=== PATIENT | male | born 1955 | race Caucasian/White ===

== ENCOUNTER 2019-03-26 11:32 | Inpatient (IN) | payer BC, OTHER ==
[~2019-03-26] VITALS: Ht 188 cm; Wt 141.1 kg
[2019-03-26] MEDS ORDERED: CLINDAMYCIN 900MG IV 50 ML IV ONE (13:30)
[2019-03-26] MEDS ORDERED: cefTRIAXone 1GM/50ML D5W 50 ML IV ONE (13:30)
[2019-03-26 13:59] LABS: Basophils # (auto) 0.1 uL; Basophils % (auto) 0.8 % (0.0-2.0); Eosinophils # (auto) 0.1 uL; Eosinophils % (auto) 0.7 % (0.0-7.0); Hematocrit 43.8 % (41.0-53.0); Lymphocytes # (auto) 0.9 uL; Mean Corpuscular Hemoglobin 33.2 pg (28.0-32.0); Mean Corpuscular Hgb Conc. 34.2 g/dL (32.0-36.0); Monocytes % (auto) 9.5 % (0.0-12.0); Neutrophils # (auto) 8.1 uL; Platelet Count (auto) 298 10^3/uL (140-450); Red Blood Cells 4.52 10^6/uL (4.5-5.90); Red Cell Distribution Width 14.4 % (11.8-14.3); White Blood Cell 10.1 10^3/uL (4.4-10.8)
[2019-03-26 14:06] LABS: INR 1.08 (0.9-1.15); Partial Thromboplastin Time 29.9 sec (23.64-32.05)
[2019-03-26 14:12] LABS: Albumin 2.2 g/dL (3.4-5.0); Anion Gap 11 (5-15); BUN/Creatinine Ratio 19.3; Blood Urea Nitrogen 23 mg/dL (7-18); Calcium 8.7 mg/dL (8.5-10.1); Carbon Dioxide 23 mmol/L (21-32); Chloride 105 mmol/L (98-107); GFR African American 79 mL/min; GFR Non-African American 65 mL/min; Glucose 95 mg/dL (74-106); Potassium 3.8 mmol/L (3.5-5.1); Sodium 139 mmol/L (136-145)
[2019-03-26 14:17] LABS: Alanine Aminotransferase 12 U/L (16-61); Alkaline Phosphatase 75 U/L (45-117); Aspartate Aminotransferase 12 U/L (15-37); Bilirubin, Total 0.6 mg/dL (0.2-1.0); Total Protein 7.5 g/dL (6.4-8.2)
[2019-03-26] MEDS ORDERED: ENOXAPARIN SOD 40 MG/0.4 ML SYRINGE SC ONE (15:30)
[2019-03-26] MEDS ORDERED: NITROGLYCERIN 0.4 MG SL TAB SL PRN (15:30)
[2019-03-26] MEDS ORDERED: ACETAMINOPHEN 500 MG TAB PO PRN (15:30)
[2019-03-26] MEDS ORDERED: MORPHINE SULF INJ 2 MG/ML SYRINGE 1ML IV PRN ×2 (15:30)
[2019-03-26 16:45] VITALS: BP 163/67
--- NOTE | 2019-03-26 16:45 | NUR ---
MS admit from ER [facility] admitted to tele/MS after SBAR received. Patient oriented to Na Sam, primary RN, unit, room, bed, and unit policies regarding patient care and visiting hours. Patient weighed by bedscale and encouraged to call if they need something. All questions and concerns addressed, patient verbalized understanding. Wound care at bed side, skin assessment done with wound care nurse lateral wound and lt lateral wound x 2 cleaned with normal saline, applied therahoney gauze, covered with the unna boot, kerlix, and ira wrap, call light with in reach, pt educated to call for assistance.
--- NOTE | 2019-03-26 17:14 | NUR ---
WOUND CARE NOTE: Wound care in to see patient per wound care request regarding multiple skin integrity issue that are noted present on admission. Patient is 63 years old male with admitting diagnosis of Cellulitis RLE. He has history of Htn and cellulitis to bilateral leg. Patient have just arrived to room 276B from [facility]. He's awake,alert and fully oriented. He's in no stated pain at this time. He's able to turn and reposition self. His current Rao score is 20. Skin assessment done with the assistance of patient's nurse, BRITTANI Monzon. Patient's bilateral lower leg are red, edematous with dry hyperkeratotic skin. Multi ulceration noted to his Lt lateral leg measuring 3x2.5cm, 1x0.5cm and 2x1.5cm. Wounds are red, full thickness with no measurable depth. Scant bleeding noted, no odor noted. His Rt lateral lower leg also has ulceration measuring 5x1.5x0.3cm. Wound is red with yellow slough, asuncion wound is bright red, scant serous drainage noted, no odor noted. Patient reported that he's been battling with this leg problem many years ago, will get better and will swell and reopen again. He added that he was being seen at [facility] years ago and the last time he's there was five years ago. He continued further that his legs get better and instructed to apply Unna boots which he does at home and change every week. Bedside nurse sent wound culture specimen of patient's BLE wound to lab for processing. Cleansed patient's BLE with wound cleanser, patted dry with gauze, applied Thera honey gauze to open wounds, applied Unna boots, covered with Kerlix and further secured with SHERRIE wrap per MD order. Patient also noted with moist redness under L breast, L abdominal fold and bilateral groin consistent with intertrigo. Patient is obese and has deep skin fold. No pressure injury noted. Photograph of mentioned multiple skin issue are taken for reference. Patient tolerated well. BRITTANI Monzon at bedside. RECOMMENDATION: BID/PRN cleaning and application of Antifungal clear ointment to intertrigo, Q3Days/PRN dressing change to BLE wounds per MD order, Dietary consult, elevate affected extremity on pillows, continue monitoring by wound care while patient is hospitalized. Addendum: 03/26/19 at 1858 by Becky Peter RN Amended: Daksha added.
[2019-03-26 17:56] VITALS: BP 163/67
[2019-03-26] MEDS ORDERED: IBUP200C95 PO (18:30)
[2019-03-26] MEDS ORDERED: TRIATAB3 PO (18:30)
[2019-03-26] MEDS ORDERED: ATEN50TA PO (18:30)
--- NOTE | 2019-03-26 19:45 | NUR ---
Opening Shift Note Assumed care of patient, awake and alert oriented x4. No S/S of distress/SOB noted. Bed is in lowest locked position with bed rails up x2 and call light is within reach of the patient. Instructed on POC and to call for assist PRN.
[2019-03-26] MEDS: FAMOTIDINE 20 MG TAB PO SCH (21:46)
[2019-03-26] MEDS: ATENOLOL 25 MG TAB PO SCH (21:47)
[2019-03-26] MEDS: CLINDAMYCIN 300MG IV 50 ML IV SCH (21:48)
[2019-03-26 21:52] VITALS: BP 162/77
[2019-03-27 05:01] VITALS: BP 132/49
[2019-03-27] MEDS: HYDROcodone-ACET 5/325MG TAB PO PRN ×3 (05:35→22:12)
[2019-03-27] MEDS: CLINDAMYCIN 300MG IV 50 ML IV SCH ×3 (05:36→22:10)
[2019-03-27 06:19] LABS: Basophils # (auto) 0 uL; Basophils % (auto) 0.5 % (0.0-2.0); Eosinophils # (auto) 0.1 uL; Hematocrit 41.9 % (41.0-53.0); Hemoglobin 14.1 g/dL (13.5-17.5); Lymphocytes # (auto) 0.9 uL; Lymphocytes % (auto) 10.5 % (10.0-50.0); Mean Corpuscular Hemoglobin 32.9 pg (28.0-32.0); Mean Corpuscular Hgb Conc. 33.7 g/dL (32.0-36.0); Mean Corpuscular Volume 97.6 fL (80.0-100.0); Monocytes # (auto) 0.9 uL; Monocytes % (auto) 11.1 % (0.0-12.0); Neutrophils # (auto) 6.3 uL; Neutrophils % (auto) 76.9 % (37.0-80.0); Platelet Count (auto) 280 10^3/uL (140-450); Red Blood Cells 4.29 10^6/uL (4.5-5.90); Red Cell Distribution Width 13.9 % (11.8-14.3); White Blood Cell 8.2 10^3/uL (4.4-10.8)
[2019-03-27 06:41] LABS: INR 1.11 (0.9-1.15); Partial Thromboplastin Time 31.8 sec (23.64-32.05)
[2019-03-27 06:47] LABS: BUN/Creatinine Ratio 21.1; Calcium 8.8 mg/dL (8.5-10.1); Potassium 3.9 mmol/L (3.5-5.1)
[2019-03-27 09:00] VITALS: BP 143/63
[2019-03-27] MEDS: ATENOLOL 25 MG TAB PO SCH (10:00)
[2019-03-27] MEDS: cefTRIAXone 1GM/50ML D5W 50 ML IV SCH (10:24)
[2019-03-27] MEDS: TRIAMTERENE/HCTZ 37.5/25 MG CAP/TAB PO SCH (10:27)
[2019-03-27] MEDS: FAMOTIDINE 20 MG TAB PO SCH ×2 (10:27→22:10)
[2019-03-27] MEDS ORDERED: OPTISON 3ml Vial for INJ IV ONE (12:03)
[2019-03-27 13:00] VITALS: BP 147/74
[2019-03-27] MEDS ORDERED: NIFEdipine ER 30 MG TAB PO ONE (15:00)
[2019-03-27] MEDS ORDERED: ASPirin-EC 81 mg tab PO ONE (15:00)
[2019-03-27] MEDS ORDERED: ENOXAPARIN SOD 40 MG/0.4 ML SYRINGE SC ONE (16:30)
[2019-03-27 16:51] VITALS: BP 158/62
--- NOTE | 2019-03-27 18:07 | NUR ---
Patient given the second specimen container for urine collection as the other one spilled over per patient.
[2019-03-27 22:00] VITALS: BP 132/68
[2019-03-27 22:50] LABS: Urine Bacteria FEW /hpf (None Seen); Urine Blood 2+ /uL (Negative); Urine Specific Gravity 1.011 (1.001-1.035); Urine WBC 2 /hpf (0 - 3)
[2019-03-27 23:00] LABS: Alcohol, Urine < 3.0 mg/dL (0-5); Amphetamine Screen, Urine NEGATIVE (NEGATIVE); Barbiturate Scree,Urine NEGATIVE (NEGATIVE); Benzodiazephine Screen, Urine NEGATIVE (NEGATIVE); Cannabinoid Screen, Urine NEGATIVE (NEGATIVE); Cocaine Screen, Urine NEGATIVE (NEGATIVE); Opiate Scree,Urine NEGATIVE (NEGATIVE); Phencyclidine Screen, Urine NEGATIVE (NEGATIVE)
[2019-03-28] MEDS: CLINDAMYCIN 300MG IV 50 ML IV SCH ×3 (05:37→22:31)
[2019-03-28] MEDS: HYDROcodone-ACET 5/325MG TAB PO PRN ×2 (05:42→19:58)
[2019-03-28 06:00] VITALS: BP 125/52
[2019-03-28 07:03] LABS: Cholesterol 136 mg/dL (< 200); HDL Cholesterol 22 mg/dL (40-59); LDL Cholesterol 100 mg/dL (< 100); Triglycerides 150 mg/dL (< 150)
[2019-03-28 08:50] VITALS: BP 125/59
[2019-03-28] MEDS: FAMOTIDINE 20 MG TAB PO SCH ×2 (11:21→22:31)
[2019-03-28] MEDS: TRIAMTERENE/HCTZ 37.5/25 MG CAP/TAB PO SCH (11:21)
[2019-03-28] MEDS: cefTRIAXone 1GM/50ML D5W 50 ML IV SCH (11:21)
[2019-03-28] MEDS: ASPirin-EC 81 mg tab PO SCH (11:21)
[2019-03-28] MEDS: ENOXAPARIN SOD 40 MG/0.4 ML SYRINGE SC SCH (11:22)
[2019-03-28] MEDS: NIFEdipine ER 30 MG TAB PO SCH (11:22)
--- NOTE | 2019-03-28 12:26 | NUR ---
Nutrition consult/assessment Notes please see attached link for complete assessment Est. Needs ABW [id number] kcal (20-23kcal/kgBW), 112-123 gms pro (1.0-1.1 gms/kgBW r/t wounds). Will continue to monitor pertinent labs and reassess nutrient need prn Addendum: 03/28/19 at [address] Amended: Links added.
[2019-03-28 12:51] VITALS: BP 129/62
[2019-03-28 16:51] VITALS: BP 151/71
--- NOTE | 2019-03-28 19:30 | NUR ---
Opening Shift Note Assumed care of patient, awake and alert. Patient verbalizes pain localizes to right and left lower legs, rating pain as 7/10. Will medicate and reassess as per ordered. Instructed on POC and to call for assist PRN, will continue to monitor for changes Q1hr and PRN.
[2019-03-28 22:00] VITALS: BP 124/56
--- NOTE | 2019-03-28 22:00 | NUR ---
IV insertion IV access obtained, via clean sterile technique by inserting 22 gauge catheter at right hand after 1 attempt. IV secured properly. No trauma to site. Patient tolerated well.
--- NOTE | 2019-03-28 22:05 | NUR ---
IV removal d/t leaking IV DC'd with clean sterile technique, catheter fully intact. Pressure dressing applied to site. Patient tolerated well.
[2019-03-29 05:00] VITALS: BP 119/57
[2019-03-29] MEDS: CLINDAMYCIN 300MG IV 50 ML IV SCH ×2 (05:55→14:00)
--- NOTE | 2019-03-29 06:26 | NUR ---
ROUNDS PATIENT AWAKE AND ALERT, DENIES ANY PAIN OR DISCOMFORT. CALL LIGHT WITHIN REACH.
--- NOTE | 2019-03-29 07:40 | NUR ---
OPENING SHIFT NOTE: Report received from NOC RNApril. Assumed care of patient. Patient resting quietly in bed. No signs/symptoms of pain. Bed in lowest position, rails x2 up and call light within reach. Updated on plan of care. Will continue to monitor.
[2019-03-29] MEDS: HYDROcodone-ACET 5/325MG TAB PO PRN (08:54)
[2019-03-29] MEDS: cefTRIAXone 1GM/50ML D5W 50 ML IV SCH (08:56)
[2019-03-29 09:00] VITALS: BP 136/69
[2019-03-29] MEDS ORDERED: ATOR20TA50 PO (09:54)
[2019-03-29] MEDS ORDERED: CIPR-173 PO (09:54)
[2019-03-29] MEDS ORDERED: ASP81EC PO (09:54)
[2019-03-29] MEDS ORDERED: NIFE30TA76 PO (10:00)
[2019-03-29] MEDS: FAMOTIDINE 20 MG TAB PO SCH (10:00)
[2019-03-29] MEDS: ENOXAPARIN SOD 40 MG/0.4 ML SYRINGE SC SCH (10:00)
[2019-03-29] MEDS: ASPirin-EC 81 mg tab PO SCH (10:36)
[2019-03-29] MEDS: TRIAMTERENE/HCTZ 37.5/25 MG CAP/TAB PO SCH (10:37)
[2019-03-29] MEDS: NIFEdipine ER 30 MG TAB PO SCH (10:37)
[2019-03-29 13:00] VITALS: BP 147/76
--- NOTE | 2019-03-29 15:45 | NUR ---
QUICK SKETCH ARTIST: Spoke to KENNA Coleman in regards to home health for wound care order. KENNA looking into it and will contact nursing with info if patient qualifies.
--- NOTE | 2019-03-29 16:30 | NUR ---
WOUND CARE: Dressing change done to bilateral lower extremities per orders. Photos taken of wounds for discharge.
[2019-03-29 17:32] VITALS: BP 130/70
--- NOTE | 2019-03-29 18:10 | NUR ---
DRY CURER: Discharge still pending arrangement of home health for wound care. No follow up from social sciences lecturer received. Paged economics department chair social sciences lecturer/complex case manager. Addendum: 03/29/19 at 1815 by LILIAN CRAIG RN T/C from [facility] economics department chair. Made her aware of situation with pending discharge and no social sciences lecturer notes. Areli states she will look into it and call nursing back.
--- NOTE | 2019-03-29 18:26 | NUR ---
Valeria at [facility] stated they accept BS PPO she is trying to run financials and see what kind of payment pt may have. If she cannot run financials , then pt will have to stay until tomorrow
--- NOTE | 2019-03-29 18:34 | NUR ---
Benita cannot run financials ton and pt will have to stay until agency obtained
--- NOTE | 2019-03-29 18:58 | NUR ---
DISCHARGE: Explained to patient that home health agency has not yet been obtained and discharge may be held until tomorrow. Patient states that he doesn't want to stay and wants to go home. Patient is willing to sign AMA form to state he wants to leave prior to home health being arranged. Explained to patient that discharge will then be after shift change. Updated Terese Meneses RN.
--- NOTE | 2019-03-29 19:26 | NUR ---
CLOSING SHIFT NOTE: Report given to NOC April PETER. Endorsed care of patient.
[2019-03-29 19:57] VITALS: BP 116/60
--- NOTE | 2019-03-29 20:30 | NUR ---
Discharge instructions given as ordered. Encourage to follow up with PMD as instructed. All questions and concerns addressed. Patient verbalized understanding. Medication reconciliation form completed and copy given to patient. IV removed with catheter intact, pressure dressing applied. Patient taken to vehicle via wheelchair with all personal belongings, accompanied by staff and family member. No distress noted at time of departure. AMA signed due to patient not wanting to wait for home health arrangements.
--- NOTE | 2019-03-30 10:52 | NUR ---
Valeria at [facility] stated pt has a $5000.00 deductible which he has not met so pt is responsible for 100% of cost of 9$250.00/visit) and when pt meets deductible, pt would be responsible for 30% of visit. Julia CHAVEZclient coordinator to call pt and inform pt of above
== END 2019-03-29 20:30 | disposition home health service (06) | DRG 602 ==
LOC: EDBD 11:32 → ER 11:32 → OVERFLOW 11:33 → WEST WING 16:38
PROVIDERS: ADMIT Nurse Practitioner Acute Care; ATTEND Internal Medicine
DX: L03.115 Cellulitis of right lower limb (principal); E43 Unspecified severe protein-calorie malnutrition; B95.61 Methicillin susceptible Staphylococcus aureus infection as the cause of diseases classified elsewhere; E66.01 Morbid (severe) obesity due to excess calories; Z68.39 Body mass index [BMI] 39.0-39.9, adult; I12.9 Hypertensive chronic kidney disease with stage 1 through stage 4 chronic kidney disease, or unspecified chronic kidney disease; I70.201 Unspecified atherosclerosis of native arteries of extremities, right leg; I87.2 Venous insufficiency (chronic) (peripheral); Z88.0 Allergy status to penicillin; I89.0 Lymphedema, not elsewhere classified; N18.3 Chronic kidney disease, stage 3 (moderate); Z72.0 Tobacco use; Z79.899 Other long term (current) drug therapy; R00.1 Bradycardia, unspecified
CPT/HCPCS: 36415; 71045; 73700; 80048; 80053; 80061; 80307; 81001; 83036; 83605; 83880; 84484; 85025; 85610; 85730; 87040; 87077; 87186; 87205; 93306; 93926; 93971; 96365; 96367; 96372; G0378; J0696; J3490; Q9956

== ENCOUNTER 2019-11-11 17:20 | Inpatient (IN) | payer BC, OTHER ==
[~2019-11-11] VITALS: Ht 188 cm; Wt 190.4 kg
[~2019-11-11 17:20] MED LIST: ASP81EC PO; ATEN50TA PO; ATOR20TA50 PO; CIPR-173 PO; IBUP200C95 PO; NIFE1TAB31 PO; TRIATAB3 PO
[2019-11-11 18:14] LABS: Basophils # (auto) 0 10 ^3/uL (0-0.2); Eosinophils # (auto) 0.1 10 ^3/uL (0-0.8); Hematocrit 25.6 % (41.0-53.0); Mean Corpuscular Hemoglobin 24.1 pg (28.0-32.0); Mean Corpuscular Hgb Conc. 31.4 g/dL (32.0-36.0); Monocytes # (auto) 0.8 10 ^3/uL (0-1.3); Neutrophils # (auto) 6.5 10 ^3/uL (1.6-8.6)
[2019-11-11 18:15] LABS: Basophils % (auto) 0.6 % (0.0-2.0); Eosinophils % (auto) 1.5 % (0.0-7.0); Lymphocytes # (auto) 1.3 10 ^3/uL (0.4-5.4); Lymphocytes % (auto) 14.9 % (10.0-50.0); Mean Corpuscular Volume 76.8 fL (80.0-100.0); Monocytes % (auto) 8.6 % (0.0-12.0); Neutrophils % (auto) 74.4 % (37.0-80.0); Platelet Count (auto) 296 10^3/uL (140-450); Red Blood Cells 3.33 10^6/uL (4.5-5.90); White Blood Cell 8.8 10^3/uL (4.4-10.8)
[2019-11-11 18:20] LABS: Red Cell Distribution Width 20.3 % (11.8-14.3)
[2019-11-11 18:35] LABS: Albumin 2.3 g/dL (3.4-5.0); Potassium 4.7 mmol/L (3.5-5.1)
[2019-11-11 18:38] LABS: BUN/Creatinine Ratio 36.4
[2019-11-11 18:41] LABS: Bilirubin, Total 0.3 mg/dL (0.2-1.0); Total Protein 6.4 g/dL (6.4-8.2)
[2019-11-11] MEDS ORDERED: SODIUM CHLORIDE 0.9% 500 ML IV ONE (19:15)
[2019-11-11] MEDS ORDERED: IOHEXOL 300 MG/ML 100ML BOTTLE IJ ONE (19:38)
[2019-11-11 20:02] LABS: INR 1.08 (0.9-1.15); Partial Thromboplastin Time 27.1 sec (23.64-32.05)
[2019-11-11 20:06] LABS: Amylase 48 U/L (25-115); Lipase 144 U/L (73-393)
[2019-11-11] MEDS ORDERED: PANTOPRAZOLE 40 MG/10 ML VIAL INJ IV ONE (22:15)
[2019-11-11] MEDS ORDERED: PANTOPRAZOLE 40mg/50ML NS AE 50 ML IV ONE ×2 (22:15→23:15)
[2019-11-11 23:03] LABS: Hematocrit 23.9 % (41.0-53.0)
[2019-11-11 23:05] LABS: Hemoglobin 7.4 g/dL (13.5-17.5)
[2019-11-11] MEDS ORDERED: ONDANSETRON HCL 4 MG/2 ML VIAL IV PRN (23:15)
[2019-11-11] MEDS ORDERED: MORPHINE SULFATE 4 MG/ML SYR/VIAL IV PRN (23:15)
[2019-11-11] MEDS ORDERED: NITROGLYCERIN 0.4 MG SL TAB SL PRN (23:15)
[2019-11-11] MEDS ORDERED: MORPHINE SULF INJ 2 MG/ML SYRINGE 1ML IV PRN (23:15)
[2019-11-12] VITALS (15 sets, daily range): BP systolic 109–159; BP diastolic 45–78
[2019-11-12] MEDS: SODIUM CHLORIDE 0.9% 1,000 ML IV SCH ×3 (04:00→10:29)
[2019-11-12] MEDS ORDERED: GABA300C10 PO (04:31)
[2019-11-12] MEDS ORDERED: LIDOCAINE VISCOUS 2% 15ML UD ONE (11:07)
[2019-11-12] MEDS ORDERED: SODIUM CHLORIDE LOCK 10 ML ONE ×2 (11:07→13:20)
[2019-11-12] MEDS ORDERED: diphenhdrAMINE HCL 50 MG/1 ML VL ONE (11:08)
[2019-11-12] MEDS: PANTOPRAZOLE 40mg/50ML NS AE 50 ML IV SCH ×4 (11:54→22:06)
[2019-11-12 12:28] LABS: Basophils # (auto) 0 10 ^3/uL (0-0.2); Hemoglobin 7.6 g/dL (13.5-17.5); Mean Corpuscular Volume 78.6 fL (80.0-100.0); Monocytes # (auto) 0.7 10 ^3/uL (0-1.3)
[2019-11-12 12:30] LABS: Basophils % (auto) 0.3 % (0.0-2.0); Eosinophils # (auto) 0.2 10 ^3/uL (0-0.8); Eosinophils % (auto) 1.7 % (0.0-7.0); Hematocrit 23.5 % (41.0-53.0); Lymphocytes # (auto) 1.6 10 ^3/uL (0.4-5.4); Lymphocytes % (auto) 18.7 % (10.0-50.0); Mean Corpuscular Hemoglobin 25.4 pg (28.0-32.0); Mean Corpuscular Hgb Conc. 32.3 g/dL (32.0-36.0); Monocytes % (auto) 8.2 % (0.0-12.0); Neutrophils # (auto) 6.2 10 ^3/uL (1.6-8.6); Neutrophils % (auto) 71.1 % (37.0-80.0); Platelet Count (auto) 263 10^3/uL (140-450); Red Blood Cells 2.99 10^6/uL (4.5-5.90); White Blood Cell 8.8 10^3/uL (4.4-10.8)
[2019-11-12 12:31] LABS: Red Cell Distribution Width 20.4 % (11.8-14.3)
[2019-11-12] MEDS: fentaNYL CITRATE 100 MCG/2 ML VL ONE ×5 (13:40→14:08)
[2019-11-12] MEDS: MIDAZOLAM HCL 5 MG/ML-1ML VIAL ONE ×4 (13:40→13:51)
[2019-11-12] MEDS ORDERED: EPINEPHrine HCL 1 MG/10 ML SYRG ONE (13:48)
[2019-11-12] MEDS ORDERED: MIDAZOLAM HCL 5 MG/ML-1ML VIAL ONE (13:53)
[2019-11-12 16:39] LABS: Basophils # (auto) 0 10 ^3/uL (0-0.2)
[2019-11-12 16:42] LABS: Basophils % (auto) 0.3 % (0.0-2.0); Eosinophils # (auto) 0 10 ^3/uL (0-0.8); Eosinophils % (auto) 0.3 % (0.0-7.0); Hemoglobin 7.9 g/dL (13.5-17.5); Platelet Count (auto) 275 10^3/uL (140-450)
[2019-11-12 16:44] LABS: Hematocrit 24.6 % (41.0-53.0); Lymphocytes % (auto) 7.1 % (10.0-50.0); Mean Corpuscular Hemoglobin 25.5 pg (28.0-32.0); Mean Corpuscular Volume 79.8 fL (80.0-100.0); Monocytes # (auto) 0.7 10 ^3/uL (0-1.3); Neutrophils # (auto) 12.7 10 ^3/uL (1.6-8.6); Neutrophils % (auto) 87.3 % (37.0-80.0); Red Blood Cells 3.09 10^6/uL (4.5-5.90); White Blood Cell 14.5 10^3/uL (4.4-10.8)
[2019-11-12 16:51] LABS: Red Cell Distribution Width 20.1 % (11.8-14.3)
[2019-11-12 22:20] LABS: Basophils # (auto) 0 10 ^3/uL (0-0.2); Basophils % (auto) 0.4 % (0.0-2.0); Eosinophils # (auto) 0.2 10 ^3/uL (0-0.8); Lymphocytes # (auto) 1.8 10 ^3/uL (0.4-5.4); Mean Corpuscular Volume 79.1 fL (80.0-100.0); Monocytes # (auto) 0.8 10 ^3/uL (0-1.3)
[2019-11-12 22:22] LABS: Eosinophils % (auto) 1.5 % (0.0-7.0); Hematocrit 23.5 % (41.0-53.0); Hemoglobin 7.3 g/dL (13.5-17.5); Lymphocytes % (auto) 15.1 % (10.0-50.0); Mean Corpuscular Hemoglobin 24.6 pg (28.0-32.0); Monocytes % (auto) 6.5 % (0.0-12.0); Neutrophils # (auto) 9.1 10 ^3/uL (1.6-8.6); Neutrophils % (auto) 76.5 % (37.0-80.0); Platelet Count (auto) 265 10^3/uL (140-450); Red Blood Cells 2.97 10^6/uL (4.5-5.90); White Blood Cell 11.8 10^3/uL (4.4-10.8)
[2019-11-12 22:29] LABS: Red Cell Distribution Width 20.7 % (11.8-14.3)
[2019-11-13] VITALS (12 sets, daily range): BP systolic 126–156; BP diastolic 47–102
[2019-11-13] MEDS: SODIUM CHLORIDE 0.9% 1,000 ML IV SCH ×3 (00:07→16:47)
[2019-11-13] MEDS: PANTOPRAZOLE 40mg/50ML NS AE 50 ML IV SCH ×4 (04:08→19:00)
[2019-11-13 05:56] LABS: Basophils # (auto) 0 10 ^3/uL (0-0.2); Eosinophils # (auto) 0.2 10 ^3/uL (0-0.8); Lymphocytes # (auto) 1.4 10 ^3/uL (0.4-5.4); Monocytes # (auto) 0.7 10 ^3/uL (0-1.3); Neutrophils # (auto) 6.3 10 ^3/uL (1.6-8.6); White Blood Cell 8.7 10^3/uL (4.4-10.8)
[2019-11-13 05:59] LABS: Basophils % (auto) 0.3 % (0.0-2.0); Eosinophils % (auto) 2.6 % (0.0-7.0); Hematocrit 23.2 % (41.0-53.0); Hemoglobin 7.3 g/dL (13.5-17.5); Lymphocytes % (auto) 16.7 % (10.0-50.0); Mean Corpuscular Hemoglobin 24.9 pg (28.0-32.0); Mean Corpuscular Hgb Conc. 31.3 g/dL (32.0-36.0); Mean Corpuscular Volume 79.5 fL (80.0-100.0); Neutrophils % (auto) 72.4 % (37.0-80.0); Platelet Count (auto) 274 10^3/uL (140-450); Red Blood Cells 2.91 10^6/uL (4.5-5.90)
[2019-11-13 06:14] LABS: BUN/Creatinine Ratio 36.5; Calcium 8.4 mg/dL (8.5-10.1); Potassium 4.2 mmol/L (3.5-5.1)
[2019-11-13 06:17] LABS: Red Cell Distribution Width 20.1 % (11.8-14.3)
[2019-11-13 13:42] LABS: Basophils # (auto) 0 10 ^3/uL (0-0.2); Eosinophils # (auto) 0.2 10 ^3/uL (0-0.8); Hemoglobin 7.1 g/dL (13.5-17.5); Monocytes # (auto) 0.7 10 ^3/uL (0-1.3)
[2019-11-13 13:44] LABS: Basophils % (auto) 0.6 % (0.0-2.0); Lymphocytes # (auto) 1.1 10 ^3/uL (0.4-5.4); Lymphocytes % (auto) 12.1 % (10.0-50.0); Mean Corpuscular Hemoglobin 25.7 pg (28.0-32.0); Mean Corpuscular Hgb Conc. 32.4 g/dL (32.0-36.0); Mean Corpuscular Volume 79.4 fL (80.0-100.0); Monocytes % (auto) 7.6 % (0.0-12.0); Neutrophils # (auto) 6.9 10 ^3/uL (1.6-8.6); Neutrophils % (auto) 77.7 % (37.0-80.0); Platelet Count (auto) 251 10^3/uL (140-450); Red Blood Cells 2.77 10^6/uL (4.5-5.90); White Blood Cell 8.8 10^3/uL (4.4-10.8)
[2019-11-13 13:46] LABS: Red Cell Distribution Width 20.2 % (11.8-14.3)
== END 2019-11-13 20:15 | disposition home or self-care (01) | DRG 378 ==
LOC: ER 17:20 → EDBD 17:20 → TELE 17:21 → TELE-WESTW 11-12 03:10
PROVIDERS: ADMIT Hospitalist; ATTEND Hospitalist
PROC: 30233N1 Transfusion of Nonautologous Red Blood Cells into Peripheral Vein, Percutaneous Approach (ICD-10-PCS; 2019-11-12)
PROC: 0W3P8ZZ Control Bleeding in Gastrointestinal Tract, Via Natural or Artificial Opening Endoscopic (ICD-10-PCS; 2019-11-12)
PROC: 3E0G8GC Introduction of Other Therapeutic Substance into Upper GI, Via Natural or Artificial Opening Endoscopic (ICD-10-PCS; principal; 2019-11-12 13:36)
DX: K28.4 Chronic or unspecified gastrojejunal ulcer with hemorrhage (principal); Z68.43 Body mass index [BMI] 50.0-59.9, adult; D64.9 Anemia, unspecified; G62.9 Polyneuropathy, unspecified; E66.01 Morbid (severe) obesity due to excess calories; F17.210 Nicotine dependence, cigarettes, uncomplicated; F41.9 Anxiety disorder, unspecified; I10 Essential (primary) hypertension; I87.8 Other specified disorders of veins; E78.5 Hyperlipidemia, unspecified; Z87.11 Personal history of peptic ulcer disease; Z88.0 Allergy status to penicillin; Z79.899 Other long term (current) drug therapy
CPT/HCPCS: 36415; 43235; 71045; 74018; 80048; 80053; 82150; 83605; 83690; 83880; 85014; 85018; 85025; 85610; 85730; 86850; 86900; 86901; 86920; 93005; 96361; 96365; 96376; 99291; C9113; G0378; J2250

== ENCOUNTER 2021-09-04 19:37 | Emergency (ER) | payer BC ==
[~2021-09-04] VITALS: Ht 182.9 cm; Wt 158.8 kg
[~2021-09-04 19:37] MED LIST changes: -ASP81EC PO; -CIPR-173 PO; +GABA300C10 PO; -IBUP200C95 PO
[2021-09-04] MEDS ORDERED: MORPHINE SULFATE 4 MG/ML SYR/VIAL IV ONE (20:00)
[2021-09-04] MEDS ORDERED: PANTOPRAZOLE 40 MG/10 ML VIAL INJ IV ONE (20:00)
[2021-09-04] MEDS ORDERED: SODIUM CHLORIDE 0.9% 500 ML IVB ONE (20:00)
[2021-09-04] MEDS ORDERED: ONDANSETRON HCL 4 MG/2 ML VIAL IV ONE (20:00)
[2021-09-04 22:13] LABS: Basophils # (auto) 0 10 ^3/uL (0-0.2); Basophils % (auto) 0.3 % (0.0-2.0); Eosinophils # (auto) 0 10 ^3/uL (0-0.8); Eosinophils % (auto) 0.1 % (0.0-7.0); Neutrophils # (auto) 10.9 10 ^3/uL (1.6-8.6)
[2021-09-04 22:16] LABS: Hematocrit 40.1 % (41.0-53.0); Lymphocytes # (auto) 0.5 10 ^3/uL (0.4-5.4); Lymphocytes % (auto) 4.4 % (10.0-50.0); Mean Corpuscular Hemoglobin 26.8 pg (28.0-32.0); Mean Corpuscular Hgb Conc. 32.3 g/dL (32.0-36.0); Mean Corpuscular Volume 82.9 fL (80.0-100.0); Monocytes # (auto) 1.1 10 ^3/uL (0-1.3); Monocytes % (auto) 8.4 % (0.0-12.0); Neutrophils % (auto) 86.8 % (37.0-80.0); Red Blood Cells 4.83 10^6/uL (4.5-5.90); Red Cell Distribution Width 18.3 % (11.8-14.3); White Blood Cell 12.5 10^3/uL (4.4-10.8)
[2021-09-04 22:32] LABS: Potassium 4.3 mmol/L (3.5-5.1)
[2021-09-04 22:43] LABS: Albumin 3.1 g/dL (3.4-5.0); BUN/Creatinine Ratio 16.4; Bilirubin, Total 0.5 mg/dL (0.2-1.0); Calcium 8.7 mg/dL (8.5-10.1); Total Protein 7.8 g/dL (6.4-8.2)
[2021-09-05] VITALS: BP 132/80
[2021-09-05] MEDS ORDERED: SOD CHL 0.45% 1,000 ML IV ONE (00:30)
== END 2021-09-05 05:37 | disposition home or self-care (01) ==
LOC: EDUNIT# 19:37 → EDBD 19:37 → ER 19:40
DX: K29.00 Acute gastritis without bleeding (principal); E66.01 Morbid (severe) obesity due to excess calories; I10 Essential (primary) hypertension; E78.5 Hyperlipidemia, unspecified; F17.210 Nicotine dependence, cigarettes, uncomplicated; Z68.42 Body mass index [BMI] 45.0-49.9, adult; Z90.49 Acquired absence of other specified parts of digestive tract; Z90.89 Acquired absence of other organs; Z79.899 Other long term (current) drug therapy; Z88.0 Allergy status to penicillin; Z20.822 Contact with and (suspected) exposure to COVID-19
CPT/HCPCS: 36415; 71045; 74176; 80053; 82150; 83690; 84484; 85025; 87426; 93005; 96361; 96374; 96375; 99285; C9113; J2270; J2405; J7030

== ENCOUNTER 2022-04-30 07:57 | Inpatient (IN) | payer OTHER, BC ==
[~2022-04-30] VITALS: Ht 188 cm; Wt 160.1 kg
[2022-04-30 09:29] LABS: Hematocrit 37.8 % (41.0-53.0); Hemoglobin 11.9 g/dL (13.5-17.5); Mean Corpuscular Hemoglobin 28.7 pg (28.0-32.0); Mean Corpuscular Hgb Conc. 31.4 g/dL (32.0-36.0); Mean Corpuscular Volume 91.5 fL (80.0-100.0); Red Blood Cells 4.13 10^6/uL (4.5-5.90); Red Cell Distribution Width 17.5 % (11.8-14.3); White Blood Cell 27.2 10^3/uL (4.4-10.8)
[2022-04-30 09:48] LABS: Basophils % (manual) 0 (0.0-2.0); Blast Cells 0; Eosinophils % (manual) 0 (0-7); Promyelocytes % 0; Reactive Lymphocytes 0
[2022-04-30 09:51] LABS: Albumin 1.3 g/dL (3.4-5.0); Calcium 8.1 mg/dL (8.5-10.1); Potassium 3.6 mmol/L (3.5-5.1)
[2022-04-30 09:54] LABS: BUN/Creatinine Ratio 16.7; Bilirubin, Total 0.4 mg/dL (0.2-1.0); Total Protein 5.2 g/dL (6.4-8.2)
[2022-04-30] MEDS ORDERED: levoFLOXacin 750MG 150 ML IV ONE (10:30)
[2022-04-30 10:32] LABS: Band Neutrophils % (manual) 7; Lymphocytes % (manual) 10 (10.0-50.0); Metamyelocytes % 2; Monocytes % (manual) 7 (0-12); Myelocytes % 1
[2022-04-30] MEDS ORDERED: NOREPINEPHRINE 8 MG/250ML KIT 250 ML IV SCH (17:45)
[2022-04-30] MEDS ORDERED: SODIUM CHLORIDE 0.9% 1,000 ML IV ONE (17:45)
[2022-04-30] MEDS ORDERED: MORPHINE SULFATE INJ 2 MG/ml SYRG IV PRN (18:45)
[2022-04-30] MEDS ORDERED: VANCOMYCIN PER PHARMACY 0 MG IV SCH (18:45)
[2022-04-30] MEDS ORDERED: NITROGLYCERIN 0.4 MG SL TAB SL PRN (18:45)
[2022-04-30 19:49] LABS: Urine Bacteria FEW /hpf (None Seen); Urine Blood 3+ /uL (Negative); Urine Hyaline Cast FEW /lpf (0 - 2); Urine Specific Gravity 1.009 (1.001-1.035); Urine WBC 31 /hpf (0 - 3)
[2022-04-30] MEDS ORDERED: VANCOMYCIN 1GM/250ML 250 ML IV ONE (20:15)
[2022-04-30 20:22] LABS: Lactic Acid w/Reflex 4.3 mmol/L (0.4-2.0)
[2022-04-30] MEDS ORDERED: AMIODARONE 450mg/250ml AE 250 ML IV SCH (23:00)
[2022-04-30] MEDS ORDERED: AMIODARONE HCL 150 MG in D5W 5% 100 ML IV ONE (23:00)
[2022-04-30] MEDS: SODIUM CHLORIDE 0.9% 1,000 ML IV SCH (23:10)
[2022-05-01] MEDS: HYDROcodone-ACET 5/325MG TAB PO PRN ×3 (04:52→13:21)
[2022-05-01] MEDS ORDERED: AMIODARONE 450mg/250ml AE 250 ML IV SCH (05:00)
[2022-05-01 05:24] LABS: Red Blood Cells 3.37 10^6/uL (4.5-5.90)
[2022-05-01] MEDS: SODIUM CHLORIDE 0.9% 1,000 ML IV SCH ×3 (05:25→14:49)
[2022-05-01 05:28] LABS: Hematocrit 30.6 % (41.0-53.0); Hemoglobin 9.6 g/dL (13.5-17.5); Mean Corpuscular Hemoglobin 28.4 pg (28.0-32.0); Mean Corpuscular Hgb Conc. 31.2 g/dL (32.0-36.0); Red Cell Distribution Width 17.6 % (11.8-14.3)
[2022-05-01 05:42] LABS: White Blood Cell 30.4 10^3/uL (4.4-10.8)
[2022-05-01 05:43] LABS: Basophils % (manual) 0 (0.0-2.0); Blast Cells 0; Eosinophils % (manual) 0 (0-7); Promyelocytes % 0; Reactive Lymphocytes 0
[2022-05-01 05:48] LABS: Anion Gap 7 (5-15); BUN/Creatinine Ratio 17.9; Blood Urea Nitrogen 19 mg/dL (7-18); Calcium 6.9 mg/dL (8.5-10.1); Carbon Dioxide 23 mmol/L (21-32); Chloride 115 mmol/L (98-107); GFR African American 90 mL/min; GFR Non-African American 74 mL/min; Glucose 143 mg/dL (74-106); Potassium 3.3 mmol/L (3.5-5.1); Sodium 145 mmol/L (136-145)
[2022-05-01 05:51] LABS: Alanine Aminotransferase < 6 U/L (16-61); Alkaline Phosphatase 88 U/L (45-117); Aspartate Aminotransferase 20 U/L (15-37); Bilirubin, Total 0.4 mg/dL (0.2-1.0); Total Protein 3.9 g/dL (6.4-8.2)
[2022-05-01] MEDS ORDERED: VANCOMYCIN PER PHARMACY 0 MG IV SCH (06:00)
[2022-05-01 06:04] LABS: Albumin 0.9 g/dL (3.4-5.0)
[2022-05-01 06:50] LABS: Band Neutrophils % (manual) 19; Lymphocytes % (manual) 1 (10.0-50.0); Metamyelocytes % 2; Monocytes % (manual) 6 (0-12); Myelocytes % 2
[2022-05-01] MEDS: ALBUMIN 25% 100 ML IV SCH ×3 (07:48→11:46)
[2022-05-01] MEDS ORDERED: POTASSIUM EFFERVESENT TAB 25 MEQ PO ONE (08:45)
[2022-05-01] MEDS ORDERED: POTASSIUM CHL 20 Meq TABLET PO ONE (09:00)
[2022-05-01] MEDS: VANCOMYCIN 1GM/250ML 250 ML IV SCH ×2 (09:13→18:45)
[2022-05-01] MEDS: levoFLOXacin 750MG 150 ML IV SCH (10:31)
[2022-05-01] MEDS: MIDODRINE HCL 10 MG TAB PO SCH ×2 (11:47→18:18)
[2022-05-01 22:00] VITALS: BP 115/52
[2022-05-02] MEDS: SODIUM CHLORIDE 0.9% 1,000 ML IV SCH ×4 (00:19→17:25)
[2022-05-02 05:00] VITALS: BP 105/57
[2022-05-02 05:20] LABS: Basophils # (auto) 0 10 ^3/uL (0-0.2); Eosinophils # (auto) 0.2 10 ^3/uL (0-0.8); Hemoglobin 8.3 g/dL (13.5-17.5); Lymphocytes # (auto) 0.4 10 ^3/uL (0.4-5.4); Monocytes # (auto) 0.5 10 ^3/uL (0-1.3); Neutrophils % (auto) 92.8 % (37.0-80.0)
[2022-05-02 05:23] LABS: Basophils % (auto) 0.2 % (0.0-2.0); Eosinophils % (auto) 1.1 % (0.0-7.0); Hematocrit 26.2 % (41.0-53.0); Lymphocytes % (auto) 2.8 % (10.0-50.0); Mean Corpuscular Hemoglobin 28.6 pg (28.0-32.0); Mean Corpuscular Hgb Conc. 31.6 g/dL (32.0-36.0); Mean Corpuscular Volume 90.5 fL (80.0-100.0); Monocytes % (auto) 3.1 % (0.0-12.0); Neutrophils # (auto) 13.9 10 ^3/uL (1.6-8.6); Red Blood Cells 2.89 10^6/uL (4.5-5.90); Red Cell Distribution Width 17.6 % (11.8-14.3); White Blood Cell 14.9 10^3/uL (4.4-10.8)
[2022-05-02 05:33] LABS: Albumin 1.5 g/dL (3.4-5.0); Calcium 7.8 mg/dL (8.5-10.1); Potassium 3.7 mmol/L (3.5-5.1)
[2022-05-02 05:37] LABS: BUN/Creatinine Ratio 21.4; Bilirubin, Total 0.5 mg/dL (0.2-1.0); Total Protein 4.1 g/dL (6.4-8.2)
[2022-05-02] MEDS: VANCOMYCIN 1GM/250ML 250 ML IV SCH (06:07)
[2022-05-02] MEDS: MIDODRINE HCL 10 MG TAB PO SCH ×3 (06:09→18:07)
[2022-05-02 09:00] VITALS: BP 119/68
[2022-05-02] MEDS: levoFLOXacin 750MG 150 ML IV SCH (09:45)
[2022-05-02] MEDS ORDERED: MANNITOL FTV 25% 12.5 GM/50 ML 50 ML IV ONE (12:00)
[2022-05-02 13:00] VITALS: BP 119/68
[2022-05-02] MEDS ORDERED: PANT40TA2 PO (13:24)
[2022-05-02] MEDS ORDERED: APIX5TAB PO (13:24)
[2022-05-02] MEDS ORDERED: GABA100C PO (13:24)
[2022-05-02] MEDS ORDERED: THIA100T5 PO (13:24)
[2022-05-02] MEDS ORDERED: HYDR-4798 PO (13:24)
[2022-05-02] MEDS ORDERED: MULT-1018 PO (13:25)
[2022-05-02] MEDS ORDERED: ZOLP10TA PO (13:26)
[2022-05-02] MEDS ORDERED: MISO100T2 PO (13:26)
[2022-05-02] MEDS ORDERED: SUCR1TAB PO (13:26)
[2022-05-02 17:00] VITALS: BP 120/58
[2022-05-02] MEDS: HYDROcodone-ACET 5/325MG TAB PO PRN (17:26)
[2022-05-02] MEDS: FUROSEMIDE 20 MG/2 ML VIAL IV SCH (18:07)
[2022-05-02] MEDS: TAMSULOSIN HYDROCHLORIDE 0.4 MG CAP PO SCH (18:07)
[2022-05-02 22:00] VITALS: BP 111/53
[2022-05-03] MEDS: SODIUM CHLORIDE 0.9% 1,000 ML IV SCH ×4 (02:36→20:05)
[2022-05-03 05:00] VITALS: BP 117/58
[2022-05-03] MEDS: MIDODRINE HCL 10 MG TAB PO SCH ×3 (05:54→18:01)
[2022-05-03] MEDS: FUROSEMIDE 20 MG/2 ML VIAL IV SCH ×2 (05:54→18:00)
[2022-05-03 09:00] VITALS: BP 137/62
[2022-05-03] MEDS ORDERED: CEFTRIAXONE SODIUM 2 GM in D5W 5% 50 ML IV SCH (10:00)
[2022-05-03] MEDS: HYDROcodone-ACET 5/325MG TAB PO PRN (10:45)
[2022-05-03] MEDS ORDERED: BACDST PO (11:18)
[2022-05-03] MEDS ORDERED: MULT-1018 PO (11:18)
[2022-05-03 12:30] LABS: Basophils # (auto) 0 10 ^3/uL (0-0.2); Basophils % (auto) 0.5 % (0.0-2.0); Eosinophils # (auto) 0.1 10 ^3/uL (0-0.8); Eosinophils % (auto) 0.9 % (0.0-7.0); Hematocrit 30.3 % (41.0-53.0); Hemoglobin 9.5 g/dL (13.5-17.5); Lymphocytes # (auto) 0.4 10 ^3/uL (0.4-5.4); Mean Corpuscular Hemoglobin 28.3 pg (28.0-32.0); Mean Corpuscular Hgb Conc. 31.5 g/dL (32.0-36.0); Mean Corpuscular Volume 90.1 fL (80.0-100.0); Monocytes # (auto) 0.4 10 ^3/uL (0-1.3); Monocytes % (auto) 4.8 % (0.0-12.0); Neutrophils # (auto) 7.4 10 ^3/uL (1.6-8.6); Neutrophils % (auto) 88.8 % (37.0-80.0); Red Blood Cells 3.37 10^6/uL (4.5-5.90); Red Cell Distribution Width 17.3 % (11.8-14.3); White Blood Cell 8.4 10^3/uL (4.4-10.8)
[2022-05-03 12:41] LABS: BUN/Creatinine Ratio 22.2; Calcium 7.6 mg/dL (8.5-10.1); Potassium 3.3 mmol/L (3.5-5.1)
[2022-05-03 13:00] VITALS: BP 127/80
[2022-05-03 17:00] VITALS: BP 131/62
[2022-05-03] MEDS: TAMSULOSIN HYDROCHLORIDE 0.4 MG CAP PO SCH (18:00)
[2022-05-03] MEDS ORDERED: POTASSIUM CHL 20 Meq TABLET PO ONE (21:45)
[2022-05-03 22:00] VITALS: BP 130/86
[2022-05-03] MEDS: CEFEPIME 1GM/ 50ML 50 ML IV SCH (22:44)
[2022-05-03] MEDS: APIXABAN 5 MG TAB PO SCH (22:44)
[2022-05-04] MEDS: SODIUM CHLORIDE 0.9% 1,000 ML IV SCH ×2 (02:45→09:25)
[2022-05-04] MEDS: HYDROcodone-ACET 5/325MG TAB PO PRN ×3 (03:42→13:01)
[2022-05-04 05:00] VITALS: BP 122/65
[2022-05-04] MEDS: MIDODRINE HCL 10 MG TAB PO SCH ×2 (05:41→13:01)
[2022-05-04] MEDS: CEFEPIME 1GM/ 50ML 50 ML IV SCH ×2 (05:41→13:43)
[2022-05-04] MEDS: FUROSEMIDE 20 MG/2 ML VIAL IV SCH (05:42)
[2022-05-04 09:00] VITALS: BP 100/69
[2022-05-04] MEDS: APIXABAN 5 MG TAB PO SCH (11:05)
[2022-05-04 12:46] VITALS: BP 129/72
== END 2022-05-04 14:00 | disposition hospice, home (50) | DRG 698 ==
LOC: EDBD 07:57 → ER 07:57 → TELE 18:47 → TELE-WESTW 05-01 16:16
PROVIDERS: ADMIT Internal Medicine; ATTEND Internal Medicine
PROC: 05HA33Z Insertion of Infusion Device into Left Brachial Vein, Percutaneous Approach (ICD-10-PCS; principal; 2022-04-30)
PROC: B54NZZA Ultrasonography of Left Upper Extremity Veins, Guidance (ICD-10-PCS; 2022-04-30)
DX: T83.511A Infection and inflammatory reaction due to indwelling urethral catheter, initial encounter (principal); A41.9 Sepsis, unspecified organism; R65.21 Severe sepsis with septic shock; Z68.42 Body mass index [BMI] 45.0-49.9, adult; E44.0 Moderate protein-calorie malnutrition; N39.0 Urinary tract infection, site not specified; K27.9 Peptic ulcer, site unspecified, unspecified as acute or chronic, without hemorrhage or perforation; D64.9 Anemia, unspecified; E66.01 Morbid (severe) obesity due to excess calories; E78.5 Hyperlipidemia, unspecified; F17.210 Nicotine dependence, cigarettes, uncomplicated; G62.9 Polyneuropathy, unspecified; Z20.822 Contact with and (suspected) exposure to COVID-19; Y84.6 Urinary catheterization as the cause of abnormal reaction of the patient, or of later complication, without mention of misadventure at the time of the procedure; I12.9 Hypertensive chronic kidney disease with stage 1 through stage 4 chronic kidney disease, or unspecified chronic kidney disease; M79.3 Panniculitis, unspecified; S31.109A Unspecified open wound of abdominal wall, unspecified quadrant without penetration into peritoneal cavity, initial encounter; X58.XXXA Exposure to other specified factors, initial encounter; N18.30 Chronic kidney disease, stage 3 unspecified; Z74.01 Bed confinement status; Z88.0 Allergy status to penicillin; Z79.899 Other long term (current) drug therapy; Z80.9 Family history of malignant neoplasm, unspecified; Z82.49 Family history of ischemic heart disease and other diseases of the circulatory system; Z87.11 Personal history of peptic ulcer disease; Z90.49 Acquired absence of other specified parts of digestive tract; Y93.89 Activity, other specified; Y92.89 Other specified places as the place of occurrence of the external cause; Y99.8 Other external cause status; T83.091A Other mechanical complication of indwelling urethral catheter, initial encounter
CPT/HCPCS: 36415; 71045; 74176; 76775; 80048; 80053; 80202; 81001; 83605; 83880; 84484; 85007; 85025; 85027; 87040; 87077; 87086; 87088; 87186; 93005; 93306; 96361; 96365; G0378; J0696; J1956; J7060; P9047